=== PATIENT | male | born 1945 | race Caucasian/White ===

== ENCOUNTER → 2018-06-08 | Outpatient (CLI) | payer MEDICARE ==
[~2018-06-08] MED LIST: REGADENOSON 0.4 MG/5 ML DISP.SYRIN. IV ONE
--- NOTE | 2018-06-08 12:27 | PCVCIMAG ---
APPROVED REPORT Imaging Protocol: Rest Tc-99m/Stress Tc-99m 1 day Study performed: 06/08/2018 09:39:55 Indication: Palpitations, Afib, Dyspnea Patient Location: Out-Patient Stress Nurse: Chantale Young RN, Colleen Clemens RN IN Tech:Wily Lucas NMTCB Ht: 5 ft 8 in Wt: 200 lbs BSA: 2.04 m2 HR: 68 bpm BP: 154/76 mmHg BMI: 30.4 Rhythm: Sinus Rhythm, PAC's Medical History Medical History: Age, HTN, Afib, DM, Former Smoker Medications: Lisinopril-HCTZ, Metoprolol, Xarelto Allergies: None related to test Pretest Chest Pain Characteristics: No chest pain Exercise History: Physically active Resting Data Rest SPECT myocardial perfusion imaging was performed in supine position 45 minutes following the intravenous injection of 11.3 mCi of Tc-99m Sestamibi. Time of rest injection: 0900 Date: 06/08/2018 Administration Route: IV Administration Site: Right AC Pharmacologic Stress Pharmacologic stress test was performed by injecting Regadenoson 0.4 mg IV push over 10-15 seconds immediately followed by the intravenous injection of 32.6 mCi of Tc-99m Sestamibi. Time of stress injection: 1015 Date: 06/08/2018 Administration Route: IV Administration Site: Right AC Gated Stress SPECT was performed 45 minutes after stress injection. The images were gated to evaluate regional wall motion and calculate left ventricular ejection fraction. Stress Test Details Stress Test: Pharmacologic stress testing performed using 0.4 mg of regadenoson per 5 mL given IV over 10 seconds. Reason for pharmacologic stress test: Prior Failed Treadmill Test. HRMax Heart Rate (APMHR): 148 bpm Resting HR: 68 bpmTarget HR (85% APMHR): 125 bpm Max HR Achieved: 102 bpm % of APMHR: 68 Recovery HR: 85 bpm BP Resting BP: 154/76 mmHg Max BP: 117/65 mmHg Recovery BP: 109/62 mmHg ECG Resting ECG: Sinus Rhythm, Aberrant PACs Stress ECG: Sinus Tachycardia, Aberrant PACs Arrhythmia: PAC's Recovery ECG: Sinus Rhythm, Aberrant PACs Clinical Reason for Termination: Completed protocol Stress Symptoms: Nausea, Lightheaded Exercise duration: min 55 sec Symptoms resolved with caffeine. Stress ECG Conclusion 1. Adequate response to intravenous Lexiscan 2. Inadequate heart rate for ECG diagnosis Study Data Post stress, the left ventricular ejection was 66%.. SSS: 0 SRS: 1 SDS: 0 TID = 1.12. Perfusion There is a large area of moderately reduced uptake in the entire segment of the inferior wall which is seen on the stress images as well as the resting images. This area thickens and moves normally and is most consistent with attenuation artifact. Wall Motion Normal left ventricular wall motion. Nuclear Conclusion ECG Findings: non-diagnostic Clinical Findings: negative for ischemia Nuclear Findings: negative for ischemia Exercise Capacity: not assessed Left Ventricular Function: normal 1. Low risk study Interpreted by: Jenifer Lay MD Electronically Approved: 06/08/2018 12:26:43 <Conclusion> 1. Adequate response to intravenous Lexiscan 2. Inadequate heart rate for ECG diagnosis
== END | disposition home or self-care (01) ==
LOC: PCVCIMAG 12:52
PROVIDERS: ATTEND Internal Medicine
DX: I48.91 Unspecified atrial fibrillation (principal); I47.1 Supraventricular tachycardia; R06.09 Other forms of dyspnea; R00.2 Palpitations; Z87.891 Personal history of nicotine dependence
CPT/HCPCS: 78452; 93017; A9500; J2785